=== PATIENT | female | born 1995 | race Caucasian/White ===

== ENCOUNTER 2022-05-18 10:12 | Emergency (ER) | payer SELFPAY ==
[2022-05-18 10:42] VITALS: BP 113/74; PULSE 65; RESP 18; TEMP 36.3; O2SAT 99; BMI 33.6
--- NOTE | 2022-05-18 11:03 | XRR_ITS ---
PROCEDURE INFORMATION: Exam: XR Right Ankle Exam date and time: 05/18/2022 11:11 AM Age: 26 years old Clinical indication: Injury or trauma; Other: Not specified; Sprain or strain; Ankle; Right; Additional info: Right ankle injury TECHNIQUE: Imaging protocol: Radiologic exam of the Right ankle. Views: Frontal, lateral, and oblique, 3 views. COMPARISON: No relevant prior studies available. FINDINGS: Bones/joints: No tibiotalar joint effusion. No acute fracture. Soft tissues: Lateral malleolar moderate soft tissue swelling. XR/XR ankle RT min 3V* [id number] IMPRESSION: 1. Possible lateral ankle ligamentous sprain. Clinical correlation is recommended. 2. No acute bony injury identified.
--- NOTE | 2022-05-18 11:14 | ED_ITS ---
HPI - Fall General: Chief Complaint: Fall Stated Complaint: Right ankle injury, Swelling Time Seen by Provider: 05/18/22 10:50 History of Present Illness: Patient is a 26-year-old female comes to the ED with right ankle injury. Patient injured her ankle this morning. She was walking and tripped over something that was on the ground causing her to roll her right ankle. Denies any head trauma or loss of consciousness. She has pain and swelling in her right ankle with limited movement in her right ankle due to pain. She rates her pain currently an 8 out of 10. She has not had anything for pain before coming to the ED. Associated symptoms-after fall: Denies abdominal pain, chest pain, headache(s), hematuria or neck pain Review of Systems Const: Denies: fever(s), chills or fatigue Eyes: Denies: change in vision or eye discomfort ENMT: Denies: throat pain, odynophagia, nasal discharge or nasal congestion Card: Denies: chest pain, palpitations, edema, swelling of feet/ankles, dyspnea on exertion or orthopnea Resp: Denies: dyspnea, productive cough or non-productive cough GI: Denies: abdominal pain, nausea, vomiting, diarrhea, constipation or hematochezia : Denies: flank pain, dysuria or hematuria Musc: Reports: extremity pain (Right ankle), extremity swelling (Right ankle) and limited range of motion (Right ankle); Denies: neck pain or back pain Skin/Breast: Denies: rash or new lesions Neuro: Denies: headache(s), numbness in extremities or weakness in extremities [facility] ED PFSH: Medical History (Updated 05/19/22 @ 14:30 by ANETTE Saleh) No pertinent family history Surgical History (Updated 05/19/22 @ 14:30 by ANETTE Saleh) No pertinent past surgical history Physical Exam Const: COMMON NORMALS: no acute distress, patient oriented x3 and alert GENERAL APPEARANCE: cooperative and comfortable HENMT: COMMON NORMALS: normocephalic HEAD & SCALP: normocephalic MOUTH: Normal oral and palatal mucosa present THROAT: posterior oropharynx normal and uvula midline Neck/C-Spine: COMMON NORMALS: supple GENERAL: Yes normal visual inspection Resp: COMMON NORMALS: normal respiratory effort, No retractions, No use of accessory muscles and clear to auscultation bilaterally AUSCULTATION: clear to auscultation bilaterally Cardio: COMMON NORMALS: regular rate, regular rhythm, S1 normal heart sound present, S2 normal heart sound present, No gallops present (Cardio), No clicks present (Cardio), No murmurs present (Cardio) and Peripheral pulses 2+ throu ghout RATE: regular rate RHYTHM: regular rhythm HEART SOUNDS: S1 normal heart sound present and S2 normal heart sound present PERIPHERAL PULSES: Peripheral pulses 2+ throughout GI: COMMON NORMALS: Normal to inspection, nondistended, normoactive bowel sounds present, Soft to palpation, non-tender and no masses PALPATION: Yes Soft to palpation : COMMON NORMALS: Yes no CVA tenderness BLADDER/KIDNEY EXAM: Yes no CVA tenderness Back/Pelvis: COMMON NORMALS: no CVA tenderness Extremity: NARRATIVE EXTREMITY EXAM: Right ankle-no deformity noted. Swelling noted around lateral malleolus. Tenderness along lateral malleolus. Limited range of motion due to pain. Neurovascular tact distally. Neuro: COMMON NORMALS: patient oriented x3 and moves all extremities SENSORIUM/ORIENTATION: Yes alert Skin: GENERAL SKIN EXAM: dry skin Course Vital Signs: Vital signs: Vital Signs Temperature 97.4 F L 05/18/22 10:42 Pulse Rate 65 05/18/22 10:42 Respiratory Rate 18 05/18/22 10:42 Blood Pressure 113/74 05/18/22 10:42 Pulse Oximetry 99 05/18/22 10:42 MDM - Fall Medical Decision Making Patient 26-year-old female comes to the ED with right ankle injury. Vital stable. Right ankle-no deformity noted. Swelling noted around lateral malleolus. Tenderness along lateral malleolus. Limited range of motion due to pain. Neurovascular tact distally. X-ray of right ankle showed no acute bony fracture but showed possible lateral ankle ligamentous sprain. Patient was diagnosed with right ankle sprain and discharged home with crutches and a prescription for ibuprofen 800 mg. Told to follow-up with PCP in the next week for reevaluation. Return to ED precautions given. Patient understood and agreed with plan. Lab Data Radiology Impressions Ankle X-Ray 05/18/22 11:03 IMPRESSION: 1. Possible lateral ankle ligamentous sprain. Clinical correlation is recommended. 2. No acute bony injury identified. Discharge Plan Discharge Patient Disposition: Home Clinical Impression: Sprain and strain of right ankle Condition: Stable Prescriptions: New ibuprofen 800 mg tablet 800 mg PO Q8H PRN (Reason: pain) Qty: 20 0RF Discharge Orders: Discharge ED (Routine); Ordered 05/18/22 Ordered By: Osmin Acosta Discharge Diet: Regular Discharge Activity: Use walker/crutches as instructed Patient Instructions: Ankle Sprain (ED) Activity Restrictions/Additional Instructions: Follow-up with medical provider as directed and 7 to 10 days for reevaluation. Rest, ice and elevate right ankle. Use crutches to help with ambulation for the next 3 to 4 days and then advance weightbearing as tolerated. Take medications as prescribed. Return to the ER or your medical provider if condition worsens. Please read and understand discharge instructions. Thank you for choosing [facility] for your healthcare needs today. Please realize this is an emergency room and that we are providing you with a medical screening exam and this may not be complete and all inclusive of all the testing and or work up that you may need to determine your ailment or severity of your illness. It is very important that you follow up as instructed or that you return to the Emergency Department should you have concerns or if your condition changes or worsens in any way. Coding Level of Care Code ED Entertainer Or Variety Artist for Neal Baker Exam Comprehensive
[2022-05-18] MEDS: ibuprofen 800 mg tablet PO (11:23)
== END 2022-05-18 13:09 | disposition home or self-care (01) ==
PROVIDERS: Emergency Provider Physician Assistant
DX: S93.401A Sprain of unspecified ligament of right ankle, initial encounter (principal); S96.911A Strain of unspecified muscle and tendon at ankle and foot level, right foot, initial encounter; X50.1XXA Overexertion from prolonged static or awkward postures, initial encounter
CPT/HCPCS: 73610; 99283

== ENCOUNTER → 2022-08-12 10:42 | Outpatient (BNVA) | payer OTHER, SELFPAY | PROVIDERS: Referring Provider Family Medicine; Visit Provider Nurse Practitioner Family | DX: R63.5 Abnormal weight gain (principal); Z68.34 Body mass index [BMI] 34.0-34.9, adult; Z86.32 Personal history of gestational diabetes; Z83.3 Family history of diabetes mellitus | CPT/HCPCS: 80053; 80061; 84443; 85025 ==